=== PATIENT | female | born 1945 | race Caucasian/White ===

== ENCOUNTER 2023-09-08 17:45 | Inpatient (IN) | payer MEDICARE, OTHER ==
[~2023-09-08] VITALS: Ht 165.1 cm; Wt 81.6 kg
[2023-09-08] MEDS ORDERED: ONDANSETRON 4 MG/2 ML VIAL ONE (19:22)
[2023-09-08] MEDS: ONDANSETRON 4 MG/2 ML VIAL IV ONE (19:28)
[2023-09-08 19:40] LABS: CALCIUM 9.3 mg/dL (8.5-10.1); CARBON DIOXIDE 29 mmol/L (21-32); CHLORIDE 103 mmol/L (98-107); CREATININE 0.7 mg/dL (0.6-1.3); GLUCOSE 151 mg/dL (74-106); POTASSIUM 3.8 mmol/L (3.5-5.1); SODIUM SERUM 141 mmol/L (136-145); UREA NITROGEN, BLOOD 20 mg/dL (7-18)
[2023-09-08 19:49] LABS: BASOPHILS % (AUTO) 0.7 % (0.0-2.0); DIFFERENTIAL COMMENT 0; EOSINOPHILS # (AUTO) 0.1 K/uL (0.0-0.7); EOSINOPHILS % (AUTO) 2.2 % (0.0-7.0); HEMATOCRIT 44.9 % (31.2-41.9); HEMOGLOBIN 13.9 g/dL (10.9-14.3); LYMPHOCYTES # (AUTO) 1.2 K/uL (0.8-4.8); LYMPHOCYTES % (AUTO) 23.5 % (20.5-51.5); MEAN CORPUSCULAR HEMOGLOBIN 25.6 uug (24.7-32.8); MEAN CORPUSCULAR HGB CONC 31 g/dL (32.3-35.6); MEAN CORPUSCULAR VOLUME 82.7 fL (75.5-95.3); MONOCYTES # (AUTO) 0.4 K/uL (0.1-1.30); MONOCYTES % (AUTO) 7.9 % (0.0-11.0); NEUTROPHILS # (AUTO) 3.3 K/uL (1.8-8.9); NEUTROPHILS % (AUTO) 65.7 % (38.5-71.5); PLATELET COUNT (AUTO) 172 K/uL (179-408); RED BLOOD CELL COUNT(AUTO) 5.42 MIL/uL (3.63-4.92); RED CELL DISTRIBUTION WIDTH 13.7 % (12.3-17.7); WHITE BLOOD COUNT (AUTO) 5.1 K/uL (3.8-11.8)
[2023-09-08 19:54] LABS: ALANINE AMINOTRANSFERASE 68 U/L (14-59); ALKALINE PHOSPHATASE 66 U/L (50-136); ASPARTATE AMINOTRANSFERASE 36 U/L (15-37); BILIRUBIN,DIRECT 0.1 mg/dL (0.0-0.2); BILIRUBIN,TOTAL 0.4 mg/dL (0.2-1.0); TOTAL PROTEIN, SERUM 7.7 g/dL (6.4-8.2)
[2023-09-08 20:15] LABS: MAGNESIUM 2.1 mg/dL (1.8-2.4)
[2023-09-08] MEDS ORDERED: CARV6.25 PO (21:23)
[2023-09-08] MEDS ORDERED: SIMV-46 PO (21:23)
[2023-09-08] MEDS ORDERED: OMEG1CAP23 PO (21:23)
[2023-09-08] MEDS ORDERED: VALS1TAB73 PO (21:23)
[2023-09-08] MEDS ORDERED: CYAN-51 PO (21:23)
[2023-09-08] MEDS ORDERED: FENO48TA6 PO (21:23)
[2023-09-08] MEDS ORDERED: CLON0.1T PO (21:23)
[2023-09-08] MEDS ORDERED: DOCU100T2 PO (21:23)
[2023-09-08] MEDS ORDERED: ASPI81TA31 PO (21:23)
[2023-09-08] MEDS ORDERED: CELE200C PO (21:23)
[2023-09-08] MEDS ORDERED: CLONIDINE HCL 0.1 MG TABLET PO PRN (23:30)
[2023-09-08] MEDS ORDERED: ONDANSETRON 4 MG/2 ML VIAL IV PRN (23:30)
[2023-09-08] MEDS ORDERED: REMEDY ESSENTIAL ZINC PASTE 113 GM TP PRN (23:30)
[2023-09-08] MEDS ORDERED: MAGNESIUM HYDROXIDE 30 ML LIQUID UDC PO PRN (23:30)
[2023-09-08] MEDS ORDERED: ACETAMINOPHEN 325 MG TABLET PO PRN (23:30)
[2023-09-08] MEDS ORDERED: IOHEXOL 350 100 ML INFUS..BTL ONE (23:37)
[2023-09-08] MEDS ORDERED: IV NORMAL SALINE 250 ML IV ONE (23:37)
[2023-09-08] MEDS ORDERED: SWABABLE VALVE TRANSFER SET EA MC ONE ×2 (23:37→23:38)
[2023-09-09] MEDS: FUROSEMIDE 20 MG/2 ML VIAL IV ONE (00:28)
[2023-09-09] MEDS: CARVEDILOL 3.125 MG TABLET PO ONE (00:29)
[2023-09-09 01:24] VITALS: BP 139/63; TEMP 98; O2SAT 94
[2023-09-09] MEDS: IV NS 1000 ML 1,000 ML IV SCH (02:39)
[2023-09-09 03:33] VITALS: O2SAT 97
[2023-09-09 06:08] VITALS: BP 107/52; TEMP 97.8; O2SAT 96
[2023-09-09 06:46] LABS: BASOPHILS % (AUTO) 0.6 % (0.0-2.0); EOSINOPHILS # (AUTO) 0.1 K/uL (0.0-0.7); HEMATOCRIT 41.7 % (31.2-41.9); HEMOGLOBIN 13.3 g/dL (10.9-14.3); LYMPHOCYTES # (AUTO) 1.3 K/uL (0.8-4.8); LYMPHOCYTES % (AUTO) 30.8 % (20.5-51.5); MEAN CORPUSCULAR HEMOGLOBIN 26.1 uug (24.7-32.8); MEAN CORPUSCULAR HGB CONC 32 g/dL (32.3-35.6); MEAN CORPUSCULAR VOLUME 81.9 fL (75.5-95.3); MONOCYTES # (AUTO) 0.4 K/uL (0.1-1.30); MONOCYTES % (AUTO) 8.9 % (0.0-11.0); NEUTROPHILS # (AUTO) 2.4 K/uL (1.8-8.9); NEUTROPHILS % (AUTO) 57.7 % (38.5-71.5); PLATELET COUNT (AUTO) 175 K/uL (179-408); RED BLOOD CELL COUNT(AUTO) 5.09 MIL/uL (3.63-4.92); RED CELL DISTRIBUTION WIDTH 13.5 % (12.3-17.7); WHITE BLOOD COUNT (AUTO) 4.1 K/uL (3.8-11.8)
[2023-09-09 06:58] LABS: DIFFERENTIAL COMMENT 1
[2023-09-09 06:59] LABS: CREATININE 0.7 mg/dL (0.6-1.3); MAGNESIUM 2.1 mg/dL (1.8-2.4); PHOSPHOROUS 4.2 mg/dL (2.5-4.9); POTASSIUM 3.7 mmol/L (3.5-5.1)
[2023-09-09 08:00] VITALS: BP 122/61; TEMP 99.3; O2SAT 96
[2023-09-09] MEDS: CARVEDILOL 6.25 MG TABLET PO SCH (08:06)
[2023-09-09] MEDS: ASPIRIN 81 MG TAB.CHEW PO SCH (08:06)
[2023-09-09 12:35] VITALS: BP 128/59; TEMP 98.8; O2SAT 93
== END 2023-09-09 13:30 | disposition home or self-care (01) | DRG 640 ==
LOC: ER 17:47 → TELE3 09-09 00:35
PROVIDERS: ADMIT Internal Medicine; ATTEND Internal Medicine
DX: E86.0 Dehydration (principal); J96.01 Acute respiratory failure with hypoxia; J98.11 Atelectasis; A08.4 Viral intestinal infection, unspecified; E78.5 Hyperlipidemia, unspecified; R79.89 Other specified abnormal findings of blood chemistry; I10 Essential (primary) hypertension; R79.1 Abnormal coagulation profile; Z79.899 Other long term (current) drug therapy; R55 Syncope and collapse
CPT/HCPCS: 36415; 70450; 71045; 71275; 83735; 84100; 84484; 85025; 85730; 93005; G0378; J2405; J7040; Q9967